=== PATIENT | female | born 1960 | race American Indian/Alaskan Native ===

== ENCOUNTER 2016-12-31 04:29 | Day surgery (SDC) | payer SELFPAY ==
[2016-12-31 05:06] LABS: Basophils % (Auto) 0.8 % (0.0-1.8); Eosinophils % (Auto) 0.8 % (0.0-4.3); Hematocrit 39.8 % (30.3-42.9); Hemoglobin 13.8 gm/dl (10.1-14.3); Mean Corpuscular HGB Conc 35 % (30-34); Mean Corpuscular Hemoglobin 33 pg (28-32); Mean Corpuscular Volume 95 fl (79-97); Platelet Count 337 K/mm3 (140-440); Red Blood Count 4.18 M/mm3 (3.65-5.03); Red Cell Distribution Width 13.4 % (13.2-15.2); White Blood Count 16.9 K/mm3 (4.5-11.0)
[2016-12-31 07:04] LABS: Bacteria,Urine 1+ /HPF (Negative); Bilirubin,Urine NEG (Negative); Blood,Urine LG (Negative); Ketones,Urine NEG (Negative); Leukocyte Esterase,Urine SM (Negative); Mucus,Urine FEW /HPF; Nitrite,Urine NEG (Negative); Urobilinogen,Urine < 2.0 mg/dL (<2.0)
[2016-12-31 07:05] LABS: RBC,Urine > 182.0 /HPF (0.0-6.0)
[2016-12-31] MEDS ORDERED: NACL 0.9% 1000 ML 1,000 ML IV ONE (07:24)
[2016-12-31] MEDS ORDERED: ZOFRAN IV ONE ×2 (07:24→18:18)
[2016-12-31] MEDS ORDERED: ROCEPHIN/NS 1 GM/50 ML 1 GM/50 ML BAG IV ONE (07:24)
[2016-12-31] MEDS ORDERED: TORADOL IV ONE (07:24)
--- NOTE | 2016-12-31 07:25 | Emergency Department Report ---
ED Female HPI - General Chief complaint: Vaginal Bleeding Stated complaint: VAG BLEEDING Time Seen by Provider: 12/31/16 07:16 Source: patient, family Mode of arrival: Ambulatory Limitations: No Limitations - History of Present Illness Initial comments: This is a 56-year-old patient here with vaginal bleeding in and stated that she had sex last night at approximately 10:30 PM. She says she had sex for the first time after 4 years. She said she went to sleep and woke up with vaginal bleeding and clots. She is also having lower abdominal pain. Patient had hysterectomy 8 years ago. Doesn't she denies any urinary burning frequency or urgency. Lower abdominal pain is crampy and ongoing.` No [id number] medication taken. Denies any fever or chills. Denies any nausea or vomiting. Denies any diarrhea. Patient denies any history of cancer. MD Complaint: vaginal bleeding, pelvic pain -: This morning Location: suprapubic Radiation: non-radiating Severity: moderate Severity scale (0 -10): 5 Quality: cramping Consistency: constant Improves with: none Worsens with: none Are you Now?: No Associated Symptoms: vaginal bleeding, abdominal pain, hematuria. denies: vaginal discharge, nausea/vomiting, fever/chills, headaches, loss of appetite, dysuria, rash, seizure, shortness of breath, syncope, weakness - Related Data Sexually active: Yes (patient had sex last night after 4 years of being abstinent) Home Medications Medication Instructions Recorded Confirmed Last Taken Metformin HCl [Glucophage] 500 mg PO QDAY 12/31/16 12/31/16 Unknown Allergies Allergy/AdvReac Type Severity Reaction Status Date / Time No Known Allergies Allergy Verified 12/31/16 04:42 ED Review of Systems ROS: Stated complaint: VAG BLEEDING Other details as noted in HPI Comment: All other systems reviewed and negative Constitutional: no symptoms reported Respiratory: no symptoms reported Cardiovascular: denies: chest pain, palpitations, edema, paroxysmal nocturnal dyspnea Gastrointestinal: abdominal pain. denies: nausea, vomiting, diarrhea, constipation, hematemesis, melena, hematochezia Genitourinary: dyspareunia (vaginal bleed and), other (abnormal vaginal bleeding and). denies: urgency, dysuria, hematuria, discharge Musculoskeletal: denies: back pain, arthralgia, myalgia Skin: denies: rash Neurological: denies: headache, weakness, abnormal gait, vertigo ED Past Medical Hx - Past Medical History Previous Medical History?: Yes Hx Diabetes: Yes - Surgical History Past Surgical History?: Yes Additional Surgical History: HYSTERECTOMY - Family History Family history: hypertension - Social History Smoking Status: Current Every Day Smoker Substance Use Type: Alcohol Other Social History: Single - Medications Home Medications: Home Medications Medication Instructions Recorded Confirmed Last Taken Type Metformin HCl [Glucophage] 500 mg PO QDAY 12/31/16 12/31/16 Unknown History ED Physical Exam - General Limitations: No Limitations General appearance: alert, in no apparent distress - Head Head exam: Present: atraumatic, normocephalic, normal inspection - Eye Eye exam: Present: PERRL, EOMI Pupils: Present: normal accommodation - ENT ENT exam: Present: normal exam, normal orophraynx, mucous membranes moist - Neck Neck exam: Present: normal inspection, full ROM. Absent: tenderness, meningismus, lymphadenopathy - Respiratory Respiratory exam: Present: normal lung sounds bilaterally. Absent: respiratory distress, wheezes, rales, rhonchi, stridor, chest wall tenderness, accessory muscle use, decreased breath sounds, prolonged expiratory - Cardiovascular Cardiovascular Exam: Present: normal rhythm, tachycardia, normal heart sounds. Absent: systolic murmur, diastolic murmur - GI/Abdominal GI/Abdominal exam: Present: soft, tenderness, guarding, normal bowel sounds. Absent: distended, rebound, rigid, organomegaly, mass, bruit, pulsatile mass, hernia - Rectal Rectal exam: Present: normal inspection - External exam: Present: bleeding. Absent: erythema, swelling, lesions, lacerations, ecchymosis Speculum exam: Present: erythema, vaginal bleeding (with clots). Absent: vaginal discharge, cervical discharge, foreign body Bi-manual exam: Absent: adnexal tenderness, adnexal mass, uterine enlargement ( absent uterus), uterine tenderness (absent uterus) - Expanded Exam Expanded Female exam: Absent: tissue present in vagina, herpetic lesions, vulvar erythema, vulvar tenderness, foreign body External exam: Present: normal Speculum exam: Present: vaginal bleeding (with clots), other (she had had hysterectomy 8 years ago). Absent: vaginal discharge - Extremities Exam Extremities exam: Present: normal inspection, full ROM, normal capillary refill , other (no clubbing cyanosis or edema. No neurovascular compromise.). Absent : tenderness, pedal edema, joint swelling, calf tenderness - Back Exam Back exam: Present: normal inspection, full ROM. Absent: tenderness, CVA tenderness (R), CVA tenderness (L), muscle spasm, paraspinal tenderness, vertebral tenderness, rash noted - Neurological Exam Neurological exam: Present: alert, oriented X3, normal gait, reflexes normal. Absent: motor sensory deficit - Psychiatric Psychiatric exam: Present: normal affect, normal mood - Skin Skin exam: Present: warm, dry, intact, normal color. Absent: rash ED Course Vital Signs 12/31/16 12/31/16 04:42 12:08 Temperature 98.2 F 98 F Pulse Rate 119 H 85 Respiratory 20 17 Rate Blood Pressure 158/84 Blood Pressure 122/69 [Right] O2 Sat by Pulse 98 99 Oximetry - Reevaluation(s) Reevaluation #1: 12/31/16 09:00 Patient here with UTI and large amount of blood. She received 1 L normal saline , CBC was elevated and she received Rocephin 1 g IV. Patient also receive Zofran 4 mg IV and Toradol 30 mg IV for nausea and abdominal pain. She voiced relief of pain. Radiologist called Dr. Saini to report that CT scan of the pelvis and abdomen without contrast showed patient with abnormality and uterus. Patient had hysterectomy which is verified by patient daughter. I discussed the radiologist the patient has a hysterectomy and he reports that maybe she has some kind of rectal abnormality. This was discussed with patient that radiologist wants further CT scan with IV contrast and by mouth rectal contrast. Hepatic panel and BMP ordered. Patient agreed to further CT scan. Reevaluation #2: 12/31/16 11:57 Patient is stable and awaiting in results of BUN creatinine and GFR via BMP. She is also overweight and CT scan of the abdomen and pelvis with IV, rectal and by mouth contrast. Abdominal exam remains unchanged. Reevaluation #3: 12/31/16 13:47 Patient didn't await in CT scan of the abdomen and pelvis status post IV, rectal and by mouth contrast. Reevaluation #4: 12/31/16 14:19 Patient with vaginal cuff these events per CT scan. I spoke with Dr. Wilson and awaiting EMPLOYEE RELATIONS ADVISOR call back. Reevaluation #5: 12/31/16 14:43 CT scan of the abdomen and pelvis with IV and by mouth/rectal contrast reveal patient with questionable dehisced vaginal cough or hematoma. Call and indirect time normal. This was relayed to patient and also I spoke with Dr. Carol Yoon of who is on-call and she wants patient to have transvaginal ultrasound. Pelvic exam and process and patient given morphine 4 mg IV. 12/31/16 17:[address] Carol Yoon who is EMPLOYEE RELATIONS ADVISOR and she will be examining patient's and will determine if patient will stay or be discharged home. This was discussed with patient and she is okay 12/31/16 17:26 12/31/16 18:08 Dr. Yoon in process of doing another pelvic exam. 12/31/16 18:53 Patient's on route to surgery per Dr. Carol Yoon. - Consultations Consultation #1: 12/31/16 14:43 Dr Yoon EMPLOYEE RELATIONS ADVISOR ED Medical Decision Making - Lab Data Result diagrams: 12/31/16 04:49 12/31/16 11:26 Lab Results 12/31/16 12/31/16 12/31/16 Range/Units 04:49 04:49 06:47 WBC 16.9 H (4.5-11.0) K/mm3 RBC 4.18 (3.65-5.03) M/mm3 Hgb 13.8 (10.1-14.3) gm/dl Hct 39.8 (30.3-42.9) % MCV 95 (79-97) fl MCH 33 H (28-32) pg MCHC 35 H (30-34) % RDW 13.4 (13.2-15.2) % Plt Count 337 (140-440) K/mm3 Lymph % (Auto) 19.6 (13.4-35.0) % [place] % (Auto) 2.9 (0.0-7.3) % Eos % (Auto) 0.8 (0.0-4.3) % Baso % (Auto) 0.8 (0.0-1.8) % Lymph # 3.3 (1.2-5.4) K/mm3 [place] # 0.5 (0.0-0.8) K/mm3 Eos # 0.1 (0.0-0.4) K/mm3 Baso # 0.1 (0.0-0.1) K/mm3 Seg Neutrophils % 75.9 H (40.0-70.0) % Seg Neutrophils # 12.9 H (1.8-7.7) K/mm3 Sodium (137-145) mmol/L Potassium (3.6-5.0) mmol/L Chloride (98-107) mmol/L Carbon Dioxide (22-30) mmol/L Anion Gap mmol/L BUN (7-17) mg/dL Creatinine (0.7-1.2) mg/dL Estimated GFR ml/min BUN/Creatinine Ratio % Glucose (65-100) mg/dL Calcium (8.4-10.2) mg/dL Total Bilirubin (0.1-1.2) mg/dL Direct Bilirubin (0-0.2) mg/dL AST (5-40) units/L ALT (7-56) units/L Alkaline Phosphatase (35-129) units/L Troponin T (0.00-0.029) ng/mL Total Protein (6.3-8.2) g/dL Albumin (3.9-5) g/dL Albumin/Globulin Ratio % Urine Color Red (Yellow) Urine Turbidity Clear (Clear) Urine pH 5.0 (5.0-7.0) Ur Specific [place] 1.023 (1.003-1.030) Urine Protein 100 mg/dl (Negative) mg/dL Urine Glucose (UA) Neg (Negative) mg/dL Urine Ketones Neg (Negative) mg/dL Urine Blood Lg (Negative) Urine Nitrite Neg (Negative) Urine Bilirubin Neg (Negative) Urine Urobilinogen < 2.0 (<2.0) mg/dL Ur Leukocyte Esterase Sm (Negative) Urine WBC (Auto) 95.0 H (0.0-6.0) /HPF Urine RBC (Auto) > 182.0 (0.0-6.0) /HPF Urine Bacteria (Auto) 1+ (Negative) /HPF Urine Mucus Few /HPF Blood Type O POSITIVE Antibody Screen Negative 12/31/16 12/31/16 Range/Units 11:26 11:26 WBC (4.5-11.0) K/mm3 RBC (3.65-5.03) M/mm3 Hgb (10.1-14.3) gm/dl Hct (30.3-42.9) % MCV (79-97) fl MCH (28-32) pg MCHC (30-34) % RDW (13.2-15.2) % Plt Count (140-440) K/mm3 Lymph % (Auto) (13.4-35.0) % [place] % (Auto) (0.0-7.3) % Eos % (Auto) (0.0-4.3) % Baso % (Auto) (0.0-1.8) % Lymph # (1.2-5.4) K/mm3 [place] # (0.0-0.8) K/mm3 Eos # (0.0-0.4) K/mm3 Baso # (0.0-0.1) K/mm3 Seg Neutrophils % (40.0-70.0) % Seg Neutrophils # (1.8-7.7) K/mm3 Sodium 142 (137-145) mmol/L Potassium 3.9 (3.6-5.0) mmol/L Chloride 106.2 (98-107) mmol/L Carbon Dioxide 25 (22-30) mmol/L Anion Gap 15 mmol/L BUN 10 (7-17) mg/dL Creatinine 0.7 (0.7-1.2) mg/dL Estimated GFR > 60 ml/min BUN/Creatinine Ratio 14.28 % Glucose 177 H (65-100) mg/dL Calcium 8.4 (8.4-10.2) mg/dL Total Bilirubin 0.40 (0.1-1.2) mg/dL Direct Bilirubin < 0.2 (0-0.2) mg/dL AST 11 (5-40) units/L ALT 7 (7-56) units/L Alkaline Phosphatase 65 (35-129) units/L Troponin T < 0.010 (0.00-0.029) ng/mL Total Protein 6.1 L (6.3-8.2) g/dL Albumin 3.6 L (3.9-5) g/dL Albumin/Globulin Ratio 1.4 % Urine Color (Yellow) Urine Turbidity (Clear) Urine pH (5.0-7.0) Ur Specific [place] (1.003-1.030) Urine Protein (Negative) mg/dL Urine Glucose (UA) (Negative) mg/dL Urine Ketones (Negative) mg/dL Urine Blood (Negative) Urine Nitrite (Negative) Urine Bilirubin (Negative) Urine Urobilinogen (<2.0) mg/dL Ur Leukocyte Esterase (Negative) Urine WBC (Auto) (0.0-6.0) /HPF Urine RBC (Auto) (0.0-6.0) /HPF Urine Bacteria (Auto) (Negative) /HPF Urine Mucus /HPF Blood Type Antibody Screen urine CX pending - Radiology Data Radiology results: report reviewed Had CT scan of abdomen and pelvis without contrast which shows that she has air/ gas in the pelvic surrounding the uterus and rectum. No focal abscesses. Gas within the endometrium is also identified. There is suggestion of possibly uterine perforation as well. Rectal perforation is thought less likely but cannot be excluded. Please correlate with patient. Patient does not have a uterus due to status post hysterectomy 8 years ago. This was communicated to Dr. Liz who report that it does look like patient have a uterus but if patient said that she had a hysterectomy than she will need to have a CT scan of the abdomen and pelvis with IV and by mouth and rectal contrast. CT scan of the abdomen and pelvis with IV and by mouth and rectal contrast revealed patient with a moderate to large amount of gas is again identified within the pelvis. The patient has apparently had a hysterectomy although there is ready form structure in the expected location of the uterus. This probably represents a hematoma which measures 4 x 5 x 3 x 5 cm in axial plane. These seem hematoma has a close association to the vaginal cuff these findings may represent vaginal cuff the head. Patient will vaginal cuff the his questionable per radiology the rectum and colon are intact. Further diagnostic tests per Dr. Carol Yoon ultrasound complete abdomen and transvaginal revealed patient with mass in the vaginal cuff probably represent hematoma or neoplasm. Clinical correlation is advised. Patient had pelvic exam done and it showed large amount of blood in vaginal vault with clots and absent cervix. No adnexal tenderness. Dr. Yoon notified of results and she will be here to examined patient. - Medical Decision Making ED course: She presents to the emergency room today with complaints of vaginal bleeding after having sex of the first time in 4 years last night. She said she is going through large amount of pads and she is having pelvic pain. Physical findings for tender abdomen. Patient had CT scan with and without contrast was done because patient had large amount of blood in her urine. CT scan without contrast was looking for kidney stones. But incidental finding for Pelvic abnormality contrast included IV, by mouth and rectal CT scan without contrast showed abnormal findings therefore CT scan with contrast showed patient with large amount of gas and pelvic area and suggests patient with questionable vaginal cuff dehiscense. Ultrasound pelvic completed and transvaginal reports patient with massive vaginal cuff properly report represents hematoma or neoplasm. Recommended EMPLOYEE RELATIONS ADVISOR. Patient right ovary and left ovary were normal. Pelvic exam done and showed patient with large amount of blood in her vaginal vault along with clots. Patient had gone through 9 pads throughout the day. Discussed this case with Dr. Wilson and he is aware of CT scan results. Dr. Carol Yoon came in to see patient and pelvic exam done with findings for bleeding and clots and patient so it abdominal pain. Patient was given Toradol 30 mg IV with Zofran 4 mg IV this morning in. She was also given additional morphine IV this afternoon. During pelvic exam by Dr. Carol oYon patient needed additional pain medications so she was given Dilaudid 1 mg IV and Zofran 4 mg IV. Patient still with abdominal tenderness on examination. CBC revealed no acute bleed and and platelets are stable but she has elevated white count which shift to the left and also mild elevation in MCH and MCHC. Troponin is stable CMP with low protein and albumin and blood sugar of 177 urinalysis positive for urinary tract infection with large amount of blood. Patient was given 1 L for IV fluid normal saline, Rocephin 1 g IV for urinary tract infection and urine culture sent. Patient remained stable throughout ED stay with stable vital signs. It was decided by Dr. Carol Yoon EMPLOYEE RELATIONS ADVISOR, the patient will be going to the OR to be cleaned out and for possible other procedure. Pt is in agreement that she notified her family. She has been nothing by mouth and type and screen already done. Critical care attestation.: If time is entered above; I have spent that time in minutes in the direct care of this critically ill patient, excluding procedure time. ED Disposition Clinical Impression: Postmenopausal vaginal bleeding, Pelvic pain, Acute cystitis with hematuria Vaginal cuff dehiscence Qualifiers: Encounter type: initial encounter Qualified Code(s): T81.31XA - Disruption of external operation (surgical) wound, not elsewhere classified, initial encounter Leukocytosis Qualifiers: Leukocytosis type: unspecified Qualified Code(s): D72.829 - Elevated white blood cell count, unspecified Disposition: DC-09 OP ADMIT IP TO THIS HOSP Is pt being admited?: Yes Does the pt Need Aspirin: No Condition: Stable
--- NOTE | 2016-12-31 08:00 | Cat Scan Report ---
CT OF THE ABDOMEN AND PELVIS WITHOUT CONTRAST HISTORY: Abdominal pain, urinary tract infection with bleeding. TECHNIQUE: Helical CT without contrast. Sagittal and coronal reformatted images. FINDINGS: No comparison. There is moderate to large gas in the pelvis surrounding the uterus and rectum. There is indistinct fat stranding in these areas but no obvious abscess. Gas is also identified within the endometrium and myometrium of the uterus. There may be uterine perforation along the right side on image 253, series 2. The bladder, ovaries and visualized bowel loops in the pelvis are unremarkable. The appendix is not confidently identified. The liver, biliary system, pancreas, spleen, kidneys, adrenal glands and aorta are unremarkable noncontrast CT. Normal heart size. Clear lung bases. Degenerative changes at L5-S1 and left hip. IMPRESSION: There is free air/gas in the pelvis surrounding the uterus and rectum. No focal abscess. Gas within the endometrium is also identified. There is suggestion of possible uterine perforation as well. Rectal perforation is thought less likely but cannot be excluded. Please correlate with the patient. Consider consultation with TOOL DISPATCHER or surgery. These findings were discussed with Dr. Jackson in the ACC/ER at 0750 hours.
[2016-12-31 12:14] LABS: Alanine Aminotransferase 7 units/L (7-56); Albumin 3.6 g/dL (3.9-5); Albumin/Globulin Ratio 1.4 %; Alkaline Phosphatase 65 units/L (35-129); Anion Gap 15 mmol/L; BUN/Creatinine Ratio 14.28; Bilirubin,Direct < 0.2 mg/dL (0-0.2); Blood Urea Nitrogen 10 mg/dL (7-17); Calcium 8.4 mg/dL (8.4-10.2); Carbon Dioxide 25 mmol/L (22-30); Chloride 106.2 mmol/L (98-107); Glucose 177 mg/dL (65-100); Potassium 3.9 mmol/L (3.6-5.0); Sodium 142 mmol/L (137-145); Total Protein 6.1 g/dL (6.3-8.2)
--- NOTE | 2016-12-31 14:04 | Cat Scan Report ---
CT SCAN OF THE ABDOMEN AND PELVIS WITH CONTRAST: HISTORY: Pelvic pain. TECHNIQUE: Helical CT in 1.25mm intervals following IV contrast. Sagittal and coronal reconstructions. FINDINGS: The noncontrast CT abdomen pelvis performed earlier today was reviewed. Rectal contrast was administered for this exam. There is no evidence for extravasation of contrast from the colon or rectum. A moderate to large amount of gas is again identified within the pelvis. The patient has apparently had a hysterectomy although there is a reniform structure in the expected location of the uterus. This probably represents a hematoma which measures 4.5 x 3.5 cm in axial plane. This assumed hematoma has a close association to the vaginal cuff. These findings may represent vaginal cuff dehiscence. Consider consultation with SHANK TURNER. The remainder of the examination is unchanged since earlier today at 0732 hours. IMPRESSION: Vaginal cuff dehiscence? See above. The rectum and colon are intact.
[2016-12-31] MEDS ORDERED: MORPHINE IV ONE (14:42)
--- NOTE | 2016-12-31 16:27 | Ultrasound Report ---
Pelvic and transvaginal sonography: History: Vaginal bleeding. Findings: Patient status post hysterectomy. There is a mass identified in the region of the vaginal cuff with heterogeneous echo pattern measuring 3.7 x 3.7 x 4.2 cm. Right ovary 2.7 x 1.6 x 2.3 cm. Left ovary 1.8 x 2.7 x 1.2 cm. No mass of the ovaries. Impression: Mass in the vaginal cuff probably represents a hematoma or a neoplasm. Clinical correlation advised. If necessary further evaluation recommended.
[2016-12-31] MEDS ORDERED: SILVER NITRATE TP ONE ×4 (18:07→19:22)
[2016-12-31] MEDS ORDERED: DILAUDID IV ONE (18:18)
[2016-12-31 18:22] LABS: Basophils % (Auto) 0.4 % (0.0-1.8); Eosinophils % (Auto) 1.1 % (0.0-4.3); Hematocrit 33.6 % (30.3-42.9); Hemoglobin 11.5 gm/dl (10.1-14.3); Mean Corpuscular HGB Conc 34 % (30-34); Mean Corpuscular Hemoglobin 33 pg (28-32); Mean Corpuscular Volume 97 fl (79-97); Platelet Count 298 K/mm3 (140-440); Red Blood Count 3.48 M/mm3 (3.65-5.03); Red Cell Distribution Width 13.3 % (13.2-15.2); White Blood Count 13.2 K/mm3 (4.5-11.0)
--- NOTE | 2016-12-31 18:50 | History and Physical Report ---
History of Present Illness Date of examination: 12/31/16 Date of admission: 12/31/16 Chief complaint: abdominal pain and vaginal bleeding History of present illness: 56 yo LMP 10 years came in for abdominal pain and vaginal bleeding after having sex for the first time in 4 years. She was seen in Er at [address] scan revealed a questionable area appearing in area of uterus as a uterus . US shows a hematoma vs a neoplasm. She denies any n,v,f, chills. 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, cancer Family/Genetic History: diabetes, heart disease, hypertension Social history: no significant social history, single Medications and Allergies Allergies Allergy/AdvReac Type Severity Reaction Status Date / Time No Known Allergies Allergy Verified 12/31/16 04:42 Review of Systems All systems: negative Gastrointestinal: abdominal pain Genitourinary: vaginal bleeding - Vital Signs Vital signs: Vital Signs Temp Pulse Resp BP Pulse Ox 98.2 F 119 H 20 158/84 98 12/31/16 04:42 12/31/16 04:42 12/31/16 04:42 12/31/16 04:42 12/31/16 04:42 Temp Pulse Resp BP Pulse Ox 98 F 85 17 122/69 99 12/31/16 12:08 12/31/16 12:08 12/31/16 12:08 12/31/16 12:08 12/31/16 12:08 - Physical Exam Breasts: Positive: deferred Cardiovascular: Regular rate, Normal S1 Lungs: Positive: Clear to auscultation, Normal air movement Abdomen: Positive: normal appearance, soft, normal bowel sounds. Negative: distention, tenderness, guarding Genitourinary (Female): Positive: normal external genitalia, normal perenium. Negative: perineal/vulvar lesions Vulva: both: normal Vagina: Positive: other (large clot in vagina ) Uterus: Positive: absent Anus/Rectum: Positive: normal perianal skin Extremities: Positive: normal Deep Tendon Reflex Grade: Normal +2 Results Result Diagrams: 12/31/16 17:29 12/31/16 11:26 Abnormal lab results 12/31/16 12/31/16 12/31/16 Range/Units 04:49 06:47 11:26 WBC 16.9 H (4.5-11.0) K/mm3 RBC (3.65-5.03) M/mm3 MCH 33 H (28-32) pg MCHC 35 H (30-34) % Seg Neutrophils % 75.9 H (40.0-70.0) % Seg Neutrophils # 12.9 H (1.8-7.7) K/mm3 Glucose 177 H (65-100) mg/dL Total Protein 6.1 L (6.3-8.2) g/dL Albumin 3.6 L (3.9-5) g/dL Urine WBC (Auto) 95.0 H (0.0-6.0) /HPF 12/31/ Range/Units 17:29 WBC 13.2 H (4.5-11.0) K/mm3 RBC 3.48 L (3.65-5.03) M/mm3 MCH 33 H (28-32) pg MCHC (30-34) % Seg Neutrophils % (40.0-70.0) % Seg Neutrophils # 9.1 H (1.8-7.7) K/mm3 Glucose (65-100) mg/dL Total Protein (6.3-8.2) g/dL Albumin (3.9-5) g/dL Urine WBC (Auto) (0.0-6.0) /HPF All other labs normal. Assessment and Plan vaginal bleeding s/p hysterectomy ddx hematoma vs evisceration vs mass ( neoplasm) consented for Exam under anesthesia and any other indicated procedure which include bx, suturing vs L/S will proceed to OR
[2016-12-31] MEDS ORDERED: DIPRIVAN 10 MG/ML IV ONE (19:44)
[2016-12-31] MEDS ORDERED: SUBLIMAZE ONE (19:44)
[2016-12-31] MEDS ORDERED: XYLOCAINE MPF 2% ONE (19:47)
[2016-12-31] MEDS ORDERED: VERSED ONE (19:54)
[2016-12-31] MEDS ORDERED: DILAUDID IV PRN (20:05)
[2016-12-31] MEDS ORDERED: ZOFRAN IV PRN (20:05)
--- NOTE | 2016-12-31 20:05 | Anesthesia Consultation ---
Anesthesia Consult and Med Hx Date of service: 12/31/16 - Airway Anesthetic Teeth Evaluation: Dentures, Partials ROM Head & Neck: Adequate Mental/Hyoid Distance: Adequate Mallampati Class: Class II Intubation Access Assessment: Probably Good - Pulmonary Exam CTA: Yes - Cardiac Exam Cardiac Exam: RRR - Pre-Operative Health Status ASA Pre-Surgery Classification: ASA3, Emergency Proposed Anesthetic Plan: General - Pulmonary Hx Smoking: Yes (1/2 ppd) - Cardiovascular System Hx Hypertension: Yes (non compliant with meds) - Endocrine Hx Non-Insulin Dependent Diabetes: Yes
--- NOTE | 2016-12-31 20:05 | Anesthesia Day of Surgery ---
Anesthesia Day of Surgery - Day of Surgery Patient Examined: Yes Patient H&P Reviewed: Yes Patient is NPO: Yes
[2016-12-31] MEDS ORDERED: NACL 0.9% IR ONE (20:23)
[2016-12-31] MEDS ORDERED: ZOFRAN ONE (20:27)
[2016-12-31] MEDS ORDERED: NACL 0.9% 100 ML ONE (20:27)
[2016-12-31] MEDS ORDERED: DECADRON ONE (20:27)
[2016-12-31] MEDS ORDERED: NEO SYNEPHRINE ONE (20:27)
[2016-12-31] MEDS ORDERED: ZEMURON IV ONE (20:27)
[2016-12-31] MEDS ORDERED: PROAIR IH ONE (20:30)
[2016-12-31] MEDS ORDERED: ROBINUL ONE ×2 (20:47)
[2016-12-31] MEDS ORDERED: NEOSTIGMINE ONE (20:48)
[2016-12-31] MEDS ORDERED: NACL 0.9% 1000 ML 1,000 ML ONE (20:49)
--- NOTE | 2016-12-31 21:11 | Post Anesthesia Evaluation ---
- Post Anesthesia Evaluation Patient Participated: Yes Airway Patent: Yes Stable Respiratory Function: Yes Temp > 96.8F: Yes Pain Manageable: Yes Adequeate Hydration: Yes Anesthesia Complications: No Block Receding Appropriately: Not Applicable
--- NOTE | 2016-12-31 21:12 | Operative Report ---
Operative Report Operative Report: Date: 12/31/16 Preop: vaginal bleeding and abdominal pain Post op: vaginal wall dehiscense Procedure: EUA, repair of vaginal wall dehiscence Surgeon: Dr. Car Chapman Certified Cytotechnologist: Dr. Car Quinn Anesthesia: General IVF : see anesthesia record UOP : straight cath clear urine 100 cc Procedure: Patient was taken to OR after consents signed and reviewed. All questions answered. Patient was taken to Or and after general anesthesia placed in dorsal lithotomy position. Patient was straight cath and cleansed thoroughly perineum and vagina. A pelvic exam revealed a large opening. A weighted speculum placed in the vagina and the corners of the vagina was closed with one stich anteriorly and posteriorly with 2-0 vicryl. A SR6 was used to begin at one corner and running locked stitch used for adequate closure. All instruments were removed and sponge count correct x 2. Patient tolerated procedure well.
[2016-12-31 23:23] VITALS: BP 116/66
== END 2016-12-31 23:10 | disposition home or self-care (01) ==
LOC: ED 04:29 → OR 21:39
PROVIDERS: ATTEND Anesthesiology
DX: T81.31XA Disruption of external operation (surgical) wound, not elsewhere classified, initial encounter (principal); Y83.8 Other surgical procedures as the cause of abnormal reaction of the patient, or of later complication, without mention of misadventure at the time of the procedure; E11.9 Type 2 diabetes mellitus without complications; I10 Essential (primary) hypertension; F17.210 Nicotine dependence, cigarettes, uncomplicated; Z72.89 Other problems related to lifestyle; Z79.84 Long term (current) use of oral hypoglycemic drugs
CPT/HCPCS: 13160; 36415; 74176; 74177; 76830; 76856; 80048; 80074; 81001; 82962; 84484; 85025; 86850; 86900; 86901; 87086; J0696; J1100; J1170; J1885; J2250; J2270; J2370; J2405; J2704; J2710; J3010; J7030; Q9967

== ENCOUNTER 2018-10-04 07:12 | Emergency (ER) | payer OTHER ==
[2018-10-04 08:12] VITALS: BP 128/87
--- NOTE | 2018-10-04 10:20 | Emergency Department Report ---
- General Chief complaint: Skin/Abscess/Foreign Body Stated complaint: LUMP ON BUTTOCKS/BACK PAIN Time Seen by Provider: 10/04/18 09:00 Source: patient Mode of arrival: Ambulatory Limitations: No Limitations - History of Present Illness Initial comments: Patient is a 58-year-old female who presents to the emergency room with complaints of an abscess to her buttock that began a week ago. the patietn states it is causing her pain and difficulty sitting down. She states this morning it opened up and was draining a mixture of pus and blood. She states she has been trying to use warm compresses without much relief. she has never had this before. She states she has a history of diabetes which she states she controls with her diet. no daily meds or allergies to meds. - Related Data Home Medications Medication Instructions Recorded Confirmed Last Taken Metformin HCl [Glucophage] 500 mg PO QDAY 12/31/16 12/31/16 Unknown Previous Rx's Medication Instructions Recorded Last Taken Type Estrogens, Conjugated [Premarin 1 applicator VG QHS #1 tube 12/31/16 Unknown Rx 0.625 mg/gram VAG CREAM] cephALEXin [Keflex] 500 mg PO Q12HR #14 cap 12/31/16 Unknown Rx oxyCODONE /ACETAMINOPHEN [Percocet 1 tab PO Q6HR PRN #30 tablet 12/31/16 Unknown Rx 5/325] Sulfamethoxazole/Trimethoprim 1 each PO BID 10 Days #20 tablet 10/04/18 Unknown Rx [Bactrim DS TAB] metFORMIN [Glucophage] 500 mg PO QDAY #30 tab 10/04/18 Unknown Rx Allergies Allergy/AdvReac Type Severity Reaction Status Date / Time No Known Allergies Allergy Verified 10/04/18 08:07 Abscess Boil HPI - HPI Chief Complaint: Skin/Abscess/Foreign Body Stated Complaint: LUMP ON BUTTOCKS/BACK PAIN Time Seen by Provider: 10/04/18 09:00 Home Medications: Home Medications Medication Instructions Recorded Confirmed Last Taken Metformin HCl [Glucophage] 500 mg PO QDAY 12/31/16 12/31/16 Unknown Previous Rx's Medication Instructions Recorded Last Taken Type Estrogens, Conjugated [Premarin 1 applicator VG QHS #1 tube 12/31/16 Unknown Rx 0.625 mg/gram VAG CREAM] cephALEXin [Keflex] 500 mg PO Q12HR #14 cap 09/29/17 Unknown Rx oxyCODONE /ACETAMINOPHEN [Percocet 1 tab PO Q6HR PRN #30 tablet 12/31/16 Unknown Rx 5/325] Sulfamethoxazole/Trimethoprim 1 each PO BID 10 Days #20 tablet 10/04/18 Unknown Rx [Bactrim DS TAB] metFORMIN [Glucophage] 500 mg PO QDAY #30 tab 10/04/18 Unknown Rx Allergies/Adverse Reactions: Allergies Allergy/AdvReac Type Severity Reaction Status Date / Time No Known Allergies Allergy Verified 10/04/18 08:07 ED Review of Systems ROS: Stated complaint: LUMP ON BUTTOCKS/BACK PAIN Other details as noted in HPI Comment: All other systems reviewed and negative ED Past Medical Hx - Past Medical History Hx Hypertension: Yes (non compliant with meds) Hx Diabetes: Yes - Surgical History Additional Surgical History: HYSTERECTOMY - Social History Smoking Status: Current Every Day Smoker - Medications Home Medications: Home Medications Medication Instructions Recorded Confirmed Last Taken Type Estrogens, Conjugated [Premarin 1 applicator VG QHS #1 tube 12/31/16 Unknown Rx 0.625 mg/gram VAG CREAM] Metformin HCl [Glucophage] 500 mg PO QDAY 12/31/16 12/31/16 Unknown History cephALEXin [Keflex] 500 mg PO Q12HR #14 cap 12/31/16 Unknown Rx oxyCODONE /ACETAMINOPHEN [Percocet 1 tab PO Q6HR PRN #30 tablet 12/31/16 Unknown Rx 5/325] Sulfamethoxazole/Trimethoprim 1 each PO BID 10 Days #20 tablet 10/04/18 Unknown Rx [Bactrim DS TAB] metFORMIN [Glucophage] 500 mg PO QDAY #30 tab 10/04/18 Unknown Rx ED Physical Exam - General Limitations: No Limitations General appearance: alert, in no apparent distress - Head Head exam: Present: atraumatic, normocephalic - Eye Eye exam: Present: normal appearance - ENT ENT exam: Present: mucous membranes moist - Respiratory Respiratory exam: Present: normal lung sounds bilaterally. Absent: respiratory distress, wheezes, rales, rhonchi, stridor, chest wall tenderness, accessory muscle use, decreased breath sounds, prolonged expiratory - Cardiovascular Cardiovascular Exam: Present: regular rate, normal rhythm, normal heart sounds. Absent: systolic murmur, diastolic murmur, rubs, gallop - GI/Abdominal GI/Abdominal exam: Present: soft, normal bowel sounds. Absent: distended, tenderness, guarding, rebound, rigid - Rectal Rectal exam: Present: other (6 cm area of induration and erythema with a 3 cm area of central flucutance on the right buttock, financial systems manager: FABY Mcclellan) - Neurological Exam Neurological exam: Present: alert, oriented X3 - Psychiatric Psychiatric exam: Present: normal affect, normal mood - Skin Skin exam: Present: warm, dry, intact ED Course Vital Signs 10/04/18 10/04/18 10/04/18 08:08 11:04 11:30 Temperature 98.5 F Pulse Rate 100 H 90 Respiratory 20 18 18 Rate Blood Pressure 128/87 O2 Sat by Pulse 100 99 Oximetry 10/04/18 11:32 Temperature Pulse Rate Respiratory 18 Rate Blood Pressure O2 Sat by Pulse Oximetry - I & D Right Buttocks Type of Procedure: Simple Site: right buttock Blade Size: 11 I & D Procedure: betadine prep, sterile drapes applied, sterile dressing applied Progress: financial systems manager: FABY Mcclellan area cleaned with betadine, sterile drapes applied, 4 cc of 1% lidocaine inject ed, 2 cm incision made with an 11 blade, copious amount of foul smelling white purulent drainage expressed, probed with blunt hemostat which expressed further purulent drainage, irrigated with 20 cc of saline, packed with iodoform gauze, pt tolerated well, no complications, bleeding controlled ED Medical Decision Making - Medical Decision Making Patient is a 58-year-old female who presents to the emergency room with complaints of an abscess to her buttock that began a week ago. the patietn states it is causing her pain and difficulty sitting down. She states this morning it opened up and was draining a mixture of pus and blood. She states she has been trying to use warm compresses without much relief. she has never had this before. She states she has a history of diabetes which she states she controls with her diet. no daily meds or allergies to meds. on exam: 6 cm area of induration and erythema with a 3 cm area of central flucutance on the right buttock, financial systems manager: FABY Mcclellan. I&D performed per procedure note, packed with iodoform gauze. pt blood glucose is 239, pt started back on metformin. pt also given prescription for bactrim. advised pt to please keep area clean and dry. No hot tub, bathtub, pool. May wash around the area with soap and water and immediately dry. packing needs to be removed in exactly 2 days. due to large area of abscess and history of DM referred pt to general surgery for an evaluation. advised that it is very important that you follow-up with a general surgeon in the next 2-3 days. please take antibiotics to completion and take them as prescribed. Returned to the emergency room immediately for any new or worsening symptoms or if symptoms not improving. discussed to follow up with a PCP in the next 2-3 days due to elevated blood glucose and being started back on metformin. Critical care attestation.: If time is entered above; I have spent that time in minutes in the direct care of this critically ill patient, excluding procedure time. ED Disposition Clinical Impression: Abscess, Encounter for incision and drainage procedure, Elevated random blood glucose level Disposition: TO HOME OR SELFCARE Is pt being admited?: No Does the pt Need Aspirin: No Condition: Stable Instructions: Abscess (ED), Incision and Drainage (ED) Additional Instructions: Please keep area clean and dry. No hot tub, bathtub, pool. May wash around the area with soap and water and immediately dry. packing needs to be removed in exactly 2 days. It is very important that you follow-up with a general surgeon in the next 2-3 days. please take antibiotics to completion and take them as prescribed. Returned to the emergency room immediately for any new or worsening symptoms or if symptoms not improving. Prescriptions: Sulfamethoxazole/Trimethoprim [Bactrim DS TAB] 1 each PO BID 10 Days #20 tablet metFORMIN [Glucophage] 500 mg PO QDAY #30 tab Referrals: DURGA LUGO MD [Primary Care Provider] - 2-3 Days JACQUE HELM MD [Staff Physician] - 2-3 Days Forms: Work/School Release Form(ED) Time of Disposition: 10:51 Print Language: UZBEK
[2018-10-04] MEDS ORDERED: XYLOCAINE 1% MPF 5 mL INFILTRATI ONE (10:24)
[2018-10-04] MEDS ORDERED: XYLOCAINE 1% MPF 5 mL ONE (10:26)
[2018-10-04] MEDS ORDERED: TYLENOL #3 PO ONE (10:46)
== END 2018-10-04 11:30 | disposition home or self-care (01) ==
LOC: ED 07:12
DX: L02.31 Cutaneous abscess of buttock (principal); E11.9 Type 2 diabetes mellitus without complications; I10 Essential (primary) hypertension; Z90.710 Acquired absence of both cervix and uterus; Z79.899 Other long term (current) drug therapy
CPT/HCPCS: 82962

== ENCOUNTER 2018-10-06 11:54 | Emergency (ER) | payer SELFPAY ==
[2018-10-06] MEDS ORDERED: BOOSTRIX IM ONE (13:04)
--- NOTE | 2018-10-06 13:06 | Emergency Department Report ---
ED Recheck HPI - General Chief Complaint: Skin/Abscess/Foreign Body Stated Complaint: FOLLOW UP Time Seen by Provider: 10/06/18 12:16 Source: patient Mode of arrival: Ambulatory Limitations: No Limitations - History of Present Illness Initial Comments: Patient is a 58-year-old who comes to the ER today in follow-up for abscess I&D that she had. She is here for packing removal. The abscesses on her right buttocks. She states that she has not had fever or chills. She is taking her medications as prescribed. - Related Data Home Medications Medication Instructions Recorded Confirmed Last Taken Metformin HCl [Glucophage] 500 mg PO QDAY 12/31/16 12/31/16 Unknown Previous Rx's Medication Instructions Recorded Last Taken Type Estrogens, Conjugated [Premarin 1 applicator VG QHS #1 tube 12/31/16 Unknown Rx 0.625 mg/gram VAG CREAM] cephALEXin [Keflex] 500 mg PO Q12HR #14 cap 12/31/16 Unknown Rx oxyCODONE /ACETAMINOPHEN [Percocet 1 tab PO Q6HR PRN #30 tablet 12/31/16 Unknown Rx 5/325] Sulfamethoxazole/Trimethoprim 1 each PO BID 10 Days #20 tablet 10/04/18 Unknown Rx [Bactrim DS TAB] metFORMIN [Glucophage] 500 mg PO QDAY #30 tab 10/04/18 Unknown Rx Allergies Allergy/AdvReac Type Severity Reaction Status Date / Time No Known Allergies Allergy Verified 10/06/18 11:55 ED Review of Systems ROS: Stated complaint: FOLLOW UP Other details as noted in HPI Comment: All other systems reviewed and negative ED Past Medical Hx - Past Medical History Hx Hypertension: Yes (non compliant with meds) Hx Diabetes: Yes - Surgical History Additional Surgical History: HYSTERECTOMY - Social History Smoking Status: Current Every Day Smoker Substance Use Type: None - Medications Home Medications: Home Medications Medication Instructions Recorded Confirmed Last Taken Type Estrogens, Conjugated [Premarin 1 applicator VG QHS #1 tube 12/31/16 Unknown Rx 0.625 mg/gram VAG CREAM] Metformin HCl [Glucophage] 500 mg PO QDAY 12/31/16 12/31/16 Unknown History cephALEXin [Keflex] 500 mg PO Q12HR #14 cap 12/31/16 Unknown Rx oxyCODONE /ACETAMINOPHEN [Percocet 1 tab PO Q6HR PRN #30 tablet 12/31/16 Unknow n Rx 5/325] Sulfamethoxazole/Trimethoprim 1 each PO BID 10 Days #20 tablet 10/04/18 Unknown Rx [Bactrim DS TAB] metFORMIN [Glucophage] 500 mg PO QDAY #30 tab 10/04/18 Unknown Rx ED Physical Exam - General Limitations: No Limitations General appearance: alert - Head Head exam: Present: normocephalic - Eye Eye exam: Present: normal appearance - ENT ENT exam: Present: mucous membranes moist - Neck Neck exam: Present: normal inspection - Respiratory Respiratory exam: Present: normal lung sounds bilaterally - Cardiovascular Cardiovascular Exam: Present: regular rate (90 ON EXAM) - GI/Abdominal GI/Abdominal exam: Present: soft - Rectal Rectal exam: Present: deferred - Extremities Exam Extremities exam: Present: normal inspection - Neurological Exam Neurological exam: Present: alert, oriented X3, CN II-XII intact - Skin Skin exam: Present: warm, intact - Other Other exam information: healing abscess of right buttocks packing removed without difficulty ED Course Vital Signs 10/06/18 12:34 Temperature 98.2 F Pulse Rate 109 H Respiratory 18 Rate Blood Pressure 140/79 O2 Sat by Pulse 99 Oximetry ED Recheck MDM - Core Measures Measure Exclusions: not indicated - Differential Diagnosis Wound Recheck - Medical Decision Making PACKING REMOVED TDAP GIVEN TAKING MEDS DC HOME WITH DC PLAN OF CARE VSS AFEBRILE Vital Signs 10/06/18 12:34 Temperature 98.2 F Pulse Rate 109 H Respiratory 18 Rate Blood Pressure 140/79 O2 Sat by Pulse 99 Oximetry Critical care attestation.: If time is entered above; I have spent that time in minutes in the direct care of this critically ill patient, excluding procedure time. ED Disposition Clinical Impression: Abscess, Abscess packing removal Disposition: DC-01 TO HOME OR SELFCARE Is pt being admited?: No Does the pt Need Aspirin: No Condition: Stable Instructions: Abscess (ED) Additional Instructions: SOAK IN TUB OF EPSOM SALTS FOR COMFORT CONTINUE HOME MEDS MOTRIN OR TYLENOL FOR PAIN ACTIVITY TOLERATED DIET TOLERATED FOLLOW UP WITH PCP NEXT WEEK REFERRAL BELOW Referrals: SANTHOSH ROSALES MD [Staff Physician] - 3-5 Days Time of Disposition: 13:04
[2018-10-06 13:52] VITALS: BP 136/80
== END 2018-10-06 13:51 | disposition home or self-care (01) ==
LOC: ED 11:54
DX: L02.31 Cutaneous abscess of buttock (principal); I10 Essential (primary) hypertension; F17.200 Nicotine dependence, unspecified, uncomplicated
CPT/HCPCS: 90471; 90715; 99282

== ENCOUNTER 2019-08-26 08:42 | Emergency (ER) | payer SELFPAY ==
[2019-08-26 09:20] LABS: Basophils # (Auto) 0.1 K/mm3 (0.0-0.1); Eosinophils # (Auto) 0.1 K/mm3 (0.0-0.4); Eosinophils % (Auto) 1.2 % (0.0-4.3); Hematocrit 46.5 % (30.3-42.9); Hemoglobin 16.1 gm/dl (10.1-14.3); Lymphocytes # (Auto) 3.5 K/mm3 (1.2-5.4); Lymphocytes % (Auto) 42.5 % (13.4-35.0); Mean Corpuscular HGB Conc 35 % (30-34); Mean Corpuscular Volume 95 fl (79-97); Monocytes # (Auto) 0.4 K/mm3 (0.0-0.8); Monocytes % (Auto) 5.3 % (0.0-7.3); Platelet Count 343 K/mm3 (140-440); Red Blood Count 4.88 M/mm3 (3.65-5.03); Red Cell Distribution Width 12.9 % (13.2-15.2)
[2019-08-26 09:37] LABS: Alanine Aminotransferase 13 units/L (7-56); Albumin 4.3 g/dL (3.9-5); BUN/Creatinine Ratio 12; Blood Urea Nitrogen 12 mg/dL (7-17); Calcium 9.5 mg/dL (8.4-10.2); Hemolysis Index 4
[2019-08-26 09:54] LABS: Bacteria,Urine 1+ /HPF (Negative); Bilirubin,Urine NEG (Negative); Blood,Urine MOD (Negative); Color,Urine Yellow (Yellow); Mucus,Urine FEW /HPF; Protein,Urine <15 mg/dL mg/dL (Negative); Urobilinogen,Urine < 2.0 mg/dL (<2.0)
[2019-08-26] MEDS ORDERED: SODIUM CHLORIDE 0.9% 1000 ML 1,000 ML IV ONE (10:25)
[2019-08-26] MEDS ORDERED: ONDANSETRON 4 MG/2 ML INJ IV ONE (10:25)
[2019-08-26] MEDS ORDERED: INSULIN REGULAR, HUMAN 100 UNITS/1 ML IV ONE (10:25)
--- NOTE | 2019-08-26 10:34 | Emergency Department Report ---
HPI - General Chief Complaint: Nausea/Vomiting/Diarrhea Time Seen by Provider: 08/26/19 10:15 - HPI HPI: 59-year-old -[place] female presents to the emergency department from home with complaint of a one-week history of a sore throat, nausea without vomiting and feeling dehydrated. Patient says that she has a history of diabetes but has not been on medication for the past 3 years as she says it has been appropriately controlled with diet and that she checks her blood sugar intermittently. She just recently moved here and therefore does not have a local primary care physician. She also has a history of hypertension but is not on medication for this as well. She is a tobacco smoker but denies any illicit drug use. She denies any fever, chest pain, shortness of breath. No sick contacts at home or any known exposure to anyone with Covid 19. ED Past Medical Hx - Past Medical History Previous Medical History?: Yes Hx Hypertension: Yes (non compliant with meds) Hx Diabetes: Yes - Surgical History Past Surgical History?: Yes Additional Surgical History: HYSTERECTOMY - Social History Smoking Status: Current Every Day Smoker Substance Use Type: None - Medications Home Medications: Home Medications Medication Instructions Recorded Confirmed Last Taken Type Estrogens, Conjugated [Premarin 1 applicator VG QHS #1 tube 12/31/16 Unknown Rx 0.625 mg/gram VAG CREAM] Metformin HCl [Glucophage] 500 mg PO QDAY 12/31/16 12/31/16 Unknown History cephALEXin [Keflex] 500 mg PO Q12HR #14 cap 12/31/16 Unknown Rx oxyCODONE /ACETAMINOPHEN [Percocet 1 tab PO Q6HR PRN #30 tablet 12/31/16 Unknown Rx 5/325] Sulfamethoxazole/Trimethoprim 1 each PO BID 10 Days #20 tablet 10/04/18 Unknown Rx [Bactrim DS TAB] Ondansetron [Zofran Odt] 4 mg PO Q8HR PRN #15 tab.rapdis 08/26/19 Unknown Rx metFORMIN [Glucophage] 500 mg PO QDAY #30 tab 08/26/19 Unknown Rx ED Review of Systems ROS: Stated complaint: SORE THROAT/NAUSEA Other details as noted in HPI Constitutional: denies: chills, fever Eyes: denies: eye pain, vision change ENT: throat pain. denies: ear pain Respiratory: denies: shortness of breath, wheezing Cardiovascular: denies: chest pain, palpitations Gastrointestinal: nausea. denies: abdominal pain, vomiting Genitourinary: denies: dysuria, discharge Musculoskeletal: denies: back pain, arthralgia Skin: denies: rash, lesions Neurological: denies: headache, weakness Physical Exam - Physical Exam Vital Signs: Vital Signs 08/26/19 08:52 Temperature 97.9 F Pulse Rate 113 H Respiratory 20 Rate Blood Pressure 124/98 O2 Sat by Pulse 100 Oximetry Physical Exam: GENERAL: The patient is well-developed well-nourished. HENT: Normocephalic. Atraumatic. Patient has moist mucous membranes. Posterior pharynx shows some mild erythema but no exudates or significant tonsillar hypertrophy. No drooling or trismus. EYES: Extraocular motions are intact. NECK: Supple. Trachea is midline. CHEST/LUNGS: Clear to auscultation. There is no respiratory distress noted. HEART/CARDIOVASCULAR: Regular. There is no tachycardia. ABDOMEN: Abdomen is soft, nontender. Patient has normal bowel sounds. SKIN: Skin is warm and dry. NEURO: The patient is awake, alert, and oriented. The patient is cooperative. The patient has no focal neurologic deficits. Normal speech. MUSCULOSKELETAL: There is no tenderness or deformity. There is no evidence of acute injury. ED Course Vital Signs 08/26/19 08:52 Temperature 97.9 F Pulse Rate 113 H Respiratory 20 Rate Blood Pressure 124/98 O2 Sat by Pulse 100 Oximetry ED Medical Decision Making - Lab Data Result diagrams: 08/26/19 09:04 08/26/19 09:04 - Medical Decision Making This patient presents to the emergency department with a sore throat, some nausea without vomiting and some dehydration. She has been off of her diabetes medications for the past few years she says it has been controlled with her diet. She presents with a serum blood sugar of about 420. There is no elevation in her anion gap and she does not appear to be in diabetic ketoacidosis. Patient was given some IV fluid resuscitation, nausea medication and a dose of IV insulin. Her Accu-Chek was down to about 210. The patient was able to pass an oral challenge without any return of her nausea or any vomiting. She appears clinically improved and safe for discharge home at this time. She will be restarted on her metformin and has been given multiple referrals for primary care. She will return to the ER with any worsening of her symptoms or any acute distress. Critical Care Time: No Critical care attestation.: If time is entered above; I have spent that time in minutes in the direct care of this critically ill patient, excluding procedure time. ED Disposition Clinical Impression: Hyperglycemia, History of diabetes mellitus, Nausea Pharyngitis Qualifiers: Pharyngitis/tonsillitis etiology: unspecified etiology Qualified Code(s): J02.9 - Acute pharyngitis, unspecified Disposition: TO HOME OR SELFCARE Is pt being admited?: No Condition: Stable Instructions: Pharyngitis (ED), Diabetic Hyperglycemia (ED) Additional Instructions: Please follow-up with a primary care physician in the next few days regarding your history of diabetes and the elevated blood sugar you were found to have today. I am restarting you on metformin. Do not skip meals, but please try and stay away from foods that are high in sugar, carbohydrates and starches. Keep a blood sugar log. Return to the emergency department with any worsening of your symptoms or any acute distress. Prescriptions: metFORMIN [Glucophage] 500 mg PO QDAY #30 tab Ondansetron [Zofran Odt] 4 mg PO Q8HR PRN #15 tab.rapdis PRN Reason: Nausea Referrals: BELINDA SNYDER MD [Primary Care Provider] - 3-5 Days BLANCO SCHWARTZ MD [Staff Physician] - 3-5 Days CUCA GARDINER MD [Staff Physician] - 3-5 Days [facility] [Provider Group] - 3-5 Days Time of Disposition: 13:09
[2019-08-26 13:20] VITALS: BP 130/80
== END 2019-08-26 13:21 | disposition home or self-care (01) ==
LOC: ED 08:42
DX: J02.9 Acute pharyngitis, unspecified (principal); E11.65 Type 2 diabetes mellitus with hyperglycemia; I10 Essential (primary) hypertension; F17.200 Nicotine dependence, unspecified, uncomplicated; F12.10 Cannabis abuse, uncomplicated; Z98.890 Other specified postprocedural states; Z79.899 Other long term (current) drug therapy
CPT/HCPCS: 36415; 80053; 81001; 82962; 83690; 85025; 87116; 87430; 96361; 96374; 96375; 99284; J2405; J7030; J1815

== ENCOUNTER 2020-01-10 05:37 | Emergency (ER) | payer SELFPAY ==
[2020-01-10] MEDS ORDERED: ASPIRIN 325 MG TAB PO ONE (05:43)
[2020-01-10 06:20] LABS: Basophils # (Auto) 0.1 K/mm3 (0.0-0.1); Basophils % (Auto) 1.2 % (0.0-1.8); Eosinophils # (Auto) 0.1 K/mm3 (0.0-0.4); Eosinophils % (Auto) 1.1 % (0.0-4.3); Hematocrit 41.5 % (30.3-42.9); Hemoglobin 14.3 gm/dl (10.1-14.3); Lymphocytes # (Auto) 3.5 K/mm3 (1.2-5.4); Lymphocytes % (Auto) 37.3 % (13.4-35.0); Mean Corpuscular HGB Conc 35 % (30-34); Mean Corpuscular Volume 97 fl (79-97); Monocytes # (Auto) 0.4 K/mm3 (0.0-0.8); Monocytes % (Auto) 4.6 % (0.0-7.3); Platelet Count 332 K/mm3 (140-440); Red Blood Count 4.28 M/mm3 (3.65-5.03); Red Cell Distribution Width 13.1 % (13.2-15.2)
--- NOTE | 2020-01-10 06:25 | XRay Report ---
CHEST PA AND LATERAL VIEWS INDICATION: Chest Pain. COMPARISON: None FINDINGS: Support devices: None Heart: Normal Lungs/Pleura: No acute pulmonary or pleural findings. IMPRESSION: 1. No significant abnormality. Signer Name: Dwaine Marroquin MD Signed: 01/10/2020 6:20 AM Workstation Name: [id number]
[2020-01-10 06:36] LABS: BUN/Creatinine Ratio 18; Blood Urea Nitrogen 18 mg/dL (7-17); Calcium 9.6 mg/dL (8.4-10.2); Hemolysis Index 15
[2020-01-10 08:38] VITALS: BP 139/78
--- NOTE | 2020-01-10 08:56 | Emergency Department Report ---
ED Chest Pain HPI - General Chief Complaint: Chest Pain Stated Complaint: AFSHAN PUI?: No Time Seen by Provider: 01/10/20 08:39 Source: patient, RN notes reviewed, old records reviewed Mode of arrival: Wheelchair Limitations: No Limitations - History of Present Illness Initial Comments: The patient was evaluated in the emergency department for symptoms described in the history of present illness. He/she was evaluated in the context of the global COVID-19 pandemic, which necessitated consideration that the patient might be at risk for infection with the virus that causes COVID-19. Institutional protocols and algorithms that pertain to the evaluation of patients at risk for COVID-19 are in a state of rapid change based on i nformation released by regulatory bodies including the CDC and federal and state organizations. These policies and algorithms were followed during the patient's care in the emergency department. Please note that these policies, procedures and recommendations changed on a rapid basis. Patient is a pleasant 59-year-old female. She is not known to myself previously. She does not have a local primary care doctor. She has a history of diabetes, but ran out of her metformin medication. She reports a strong family history of ischemic heart disease, reports her son had a stent placed at the age of 36, and "my mother of congestive heart failure." She presents to the ER today with a complaint of nontraumatic left- sided chest pain, which radiates down the left upper extremity, which is intermittent. She is pain-free at this time. However, she has been having intermittent pain since 330 this morning. She denies headache, neck pain, vomiting, diaphoresis exertional shortness of breath, DVT and pulmonary embolism risk factors. She does take a daily aspirin. No health technician hearing or cardiac risk ratification recently that she is aware of. She states that she is chest pain- free at this time MD Complaint: chest pain -: Sudden Pain Location: left chest Pain Radiation: LUE Severity: mild Severity scale (0 -10): 5 Quality: aching Consistency: intermittent Improves With: nothing Worsens With: nothing Treatments Prior to Arrival: aspirin Aspirin use within the Past 7 Days: (1) Yes - Related Data Home Medications Medication Instructions Recorded Confirmed Last Taken Metformin HCl [Glucophage] 500 mg PO QDAY 12/31/16 12/31/16 Unknown Previous Rx's Medication Instructions Recorded Last Taken Type Estrogens, Conjugated [Premarin 1 applicator VG QHS #1 tube 12/31/16 Unknown Rx 0.625 mg/gram VAG CREAM] cephALEXin [Keflex] 500 mg PO Q12HR #14 cap 12/31/16 Unknown Rx Sulfamethoxazole/Trimethoprim 1 each PO BID 10 Days #20 tablet 10/04/18 Unknown Rx [Bactrim DS TAB] Ondansetron [Zofran Odt] 4 mg PO Q8HR PRN #15 tab.rapdis 08/26/19 Unknown Rx metFORMIN [Glucophage] 500 mg PO QDAY #30 tab 08/26/19 Unknown Rx Amlodipine Besylate [Norvasc] 5 mg PO QDAY #30 tablet 01/10/20 Unknown Rx Aspirin 325 mg PO ONCE #30 tablet 01/10/20 Unknown Rx metFORMIN [Glucophage] 500 mg PO QDAY #30 tab 01/10/20 Unknown Rx Allergies Allergy/AdvReac Type Severity Reaction Status Date / Time No Known Allergies Allergy Verified 10/06/18 11:55 Heart Score - HEART Score History: Moderately suspicious EKG: Non-specific Age: 45-65 Risk factors: > 3 risk factors or hx of atherosclerotic disease Troponin: < normal limit HEART Score: 5 - Critical Actions Critical Actions: 4-6 pts:12-16.6% risk of adverse cardiac event. Should be admitted ED Review of Systems ROS: Stated complaint: AFSHAN Other details as noted in HPI Comment: All other systems reviewed and negative Cardiovascular: chest pain Neurological: paresthesias ED Past Medical Hx - Past Medical History Hx Hypertension: Yes (non compliant with meds) Hx Diabetes: Yes - Surgical History Additional Surgical History: HYSTERECTOMY - Social History Smoking Status: Current Every Day Smoker Substance Use Type: None - Medications Home Medications: Home Medications Medication Instructions Recorded Confirmed Last Taken Type Estrogens, Conjugated [Premarin 1 applicator VG QHS #1 tube 12/31/16 Unknown Rx 0.625 mg/gram VAG CREAM] Metformin HCl [Glucophage] 500 mg PO QDAY 12/31/16 12/31/16 Unknown History cephALEXin [Keflex] 500 mg PO Q12HR #14 cap 12/31/16 Unknown Rx Sulfamethoxazole/Trimethoprim 1 each PO BID 10 Days #20 tablet 10/04/18 Unknown Rx [Bactrim DS TAB] Ondansetron [Zofran Odt] 4 mg PO Q8HR PRN #15 tab.rapdis 08/26/19 Unknown Rx metFORMIN [Glucophage] 500 mg PO QDAY #30 tab 08/26/19 Unknown Rx Amlodipine Besylate [Norvasc] 5 mg PO QDAY #30 tablet 01/10/20 Unknown Rx Aspirin 325 mg PO ONCE #30 tablet 01/10/20 Unknown Rx metFORMIN [Glucophage] 500 mg PO QDAY #30 tab 01/10/20 Unknown Rx ED Physical Exam - General Limitations: No Limitations General appearance: alert, in no apparent distress - Head Head exam: Present: atraumatic, normocephalic - Eye Eye exam: Present: normal appearance, EOMI. Absent: nystagmus - ENT ENT exam: Present: normal exam, normal orophraynx, mucous membranes moist, normal external ear exam - Neck Neck exam: Present: normal inspection, full ROM. Absent: tenderness, meningismus - Respiratory Respiratory exam: Present: normal lung sounds bilaterally. Absent: respiratory distress, wheezes, rales, rhonchi, stridor, decreased breath sounds - Cardiovascular Cardiovascular Exam: Present: regular rate, normal rhythm, normal heart sounds. Absent: bradycardia, tachycardia, irregular rhythm, systolic murmur, diastolic murmur, rubs, gallop - GI/Abdominal GI/Abdominal exam: Present: soft. Absent: distended, tenderness, guarding, rebound, rigid, pulsatile mass - Extremities Exam Extremities exam: Present: normal inspection, full ROM, normal capillary refill, other (2+ pulses noted in the bilateral upper and lower extremities. There is no palpable cord. negative Homans sign. Muscular compartments are soft. The pelvis is stable.). Absent: tenderness, pedal edema, joint swelling, calf tenderness - Back Exam Back exam: Present: normal inspection, full ROM. Absent: CVA tenderness (R), CVA tenderness (L), muscle spasm, paraspinal tenderness, vertebral tenderness - Neurological Exam Neurological exam: Present: alert, oriented X3, normal gait, other (No facial droop. Tongue midline. Extraocular movements intact bilaterally. Facial sens ation intact to light touch in V1, V2, V3 distribution bilaterally. 5 and a 5 strength in 4 extremities. Sensation intact to light touch in 4 extremities.). Absent: motor sensory deficit - Psychiatric Psychiatric exam: Present: normal affect, normal mood - Skin Skin exam: Present: warm, dry, intact, normal color. Absent: rash ED Course Vital Signs 01/10/20 01/10/20 05:39 08:36 Temperature 97.9 F Pulse Rate 99 H 93 H Respiratory 18 14 Rate Blood Pressure 186/87 Blood Pressure 139/78 [Left] O2 Sat by Pulse 99 100 Oximetry TREVOR score - Trevor Score Age > 65: (0) No Aspirin use within the Past 7 Days: (1) Yes 3 or more CAD Risk Factors: (1) Yes 2 or more Angina events in past 24 hrs: (1) Yes Known CAD with more than 50% Stenosis: (0) No Elevated Cardiac Markers: (0) No ST Deviation Greater than 0.5mm: (0) No TREVOR Score: 3 ED Medical Decision Making - Lab Data Result diagrams: 01/10/20 05:47 01/10/20 05:47 Vital Signs 01/10/20 01/10/20 05:39 08:36 Temperature 97.9 F Pulse Rate 99 H 93 H Respiratory 18 14 Rate Blood Pressure 186/87 Blood Pressure 139/78 [Left] O2 Sat by Pulse 99 100 Oximetry Lab Results 01/10/20 01/10/20 01/10/20 Range/Units 05:47 05:47 09:40 WBC 9.5 (4.5-11.0) K/mm3 RBC 4.28 (3.65-5.03) M/mm3 Hgb 14.3 (10.1-14.3) gm/dl Hct 41.5 (30.3-42.9) % MCV 97 (79-97) fl MCH 33 H (28-32) pg MCHC 35 H (30-34) % RDW 13.1 L (13.2-15.2) % Plt Count 332 (140-440) K/mm3 Lymph % (Auto) 37.3 H (13.4-35.0) % [place] % (Auto) 4.6 (0.0-7.3) % Eos % (Auto) 1.1 (0.0-4.3) % Baso % (Auto) 1.2 (0.0-1.8) % Lymph # (Auto) 3.5 (1.2-5.4) K/mm3 [place] # (Auto) 0.4 (0.0-0.8) K/mm3 Eos # (Auto) 0.1 (0.0-0.4) K/mm3 Baso # (Auto) 0.1 (0.0-0.1) K/mm3 Seg Neutrophils % 55.8 (40.0-70.0) % Seg Neutrophils # 5.3 (1.8-7.7) K/mm3 Sodium 134 L (137-145) mmol/L Potassium 4.0 (3.6-5.0) mmol/L Chloride 98.2 (98-107) mmol/L Carbon Dioxide 19 L (22-30) mmol/L Anion Gap 21 mmol/L BUN 18 H (7-17) mg/dL Creatinine 1.0 (0.6-1.2) mg/dL Estimated GFR > 60 ml/min BUN/Creatinine Ratio 18 % Glucose 464 H (65-100) mg/dL POC Glucose 372 H (70-105) Calcium 9.6 (8.4-10.2) mg/dL Troponin T < 0.010 (0.00-0.029) ng/mL - EKG Data -: EKG Interpreted by Ms EKG shows normal: sinus rhythm Rate: normal - EKG Data When compared to previous EKG there are: previous EKG unavailable 01/10/20 09:48 There is no prior EKG available for comparison. Sinus rhythm, 85 bpm, left ventricular hypertrophy, normal axis, normal intervals, . Abnormal EKG. Not a STEMI. - Radiology Data Radiology results: pending, report reviewed, image reviewed X-ray of the chest is negative for acute disease - Medical Decision Making Differential diagnosis, including but not limited to: Acute coronary syndrome, GERD, gastritis, hiatal hernia, pneumonia, medication refill, noncompliance Assessment and plan: 59-year-old female, who is not currently tachycardic, tachypneic or hypoxic, who denies DVT and pulmonary embolism risk factors, who is low risk by Wells criteria, with unremarkable x-ray of the chest, unremarkable mediastinum, equal pulses in the bilateral upper and lower extremities, with symptoms concerning for coronary artery disease. Patient is basically pain-free at this time. She presents as alert, oriented, clinically sober at this time, and free from distracting injury. The patient exhibits decision-making capacity. She is moderate risk for major adverse cardiac event as per heart score. I strongly encouraged the patient to accept admission to this hospital for cardiac risk ratification, and risk factor modification. Patient is declining/refusing at this time. Risks of leaving, including , disability, paralysis, permanent loss of quality of life are discussed with the patient. She verbalizes understanding. She is able to articulate these risks in her own words. She states that she will follow-up with an outpatient primary care doctor. This conversation is witnessed by nurse Nisa Hong. Patient understands that she may return to the emergency room right away if and when she changes her mind. I will refill her metformin, as she has run out of it, and also discharged with Norvasc, and aspirin. Critical care attestation.: If time is entered above; I have spent that time in minutes in the direct care of this critically ill patient, excluding procedure time. ED Disposition Clinical Impression: Acute chest pain, Hyperglycemia, Elevated blood pressure reading, Medication refill Disposition: - LEFT AGAINST MED ADVICE Is pt being admited?: No Does the pt Need Aspirin: No Condition: Undetermined Instructions: Chest Pain (ED) Additional Instructions: As we discussed, you have left the hospital/emergency room AGAINST MEDICAL ADVICE. By leaving, you risked , disability, paralysis, permanent loss of quality of life. The ER is open 24 hours a day, 7 days a week. It never closes. Please return to the emergency room right away if and when you change your mind. If you decide not to return to the emergency room, please follow-up with the listed physician referrals as soon as possible. Prescriptions: Aspirin 325 mg PO ONCE #30 tablet metFORMIN [Glucophage] 500 mg PO QDAY #30 tab Amlodipine Besylate [Norvasc] 5 mg PO QDAY #30 tablet Referrals: SANTHOSH ROSALES MD [Staff Physician] - 3-5 Days ALIZA BARRETT MD [Staff Physician] - 3-5 Days Forms: Work/School Release Form(ED)
[2020-01-10] MEDS ORDERED: INSULIN REGULAR, HUMAN 100 UNIT/ML 3ML VIAL SUB-Q ONE (09:07)
[2020-01-10] MEDS ORDERED: FAMOTIDINE 20 MG TAB PO ONE (09:07)
[2020-01-10] MEDS ORDERED: INSULIN REGULAR, HUMAN 100 UNITS/1 ML ONE (09:33)
== END 2020-01-10 10:00 | disposition left against medical advice (07) ==
LOC: ED 05:37
DX: E11.65 Type 2 diabetes mellitus with hyperglycemia (principal); I10 Essential (primary) hypertension; Z76.0 Encounter for issue of repeat prescription; Z98.890 Other specified postprocedural states; F17.200 Nicotine dependence, unspecified, uncomplicated; Z90.49 Acquired absence of other specified parts of digestive tract; Z79.82 Long term (current) use of aspirin; Z79.899 Other long term (current) drug therapy
CPT/HCPCS: 36415; 71046; 80048; 82962; 84484; 85025; 93005; 96372; J1815

== ENCOUNTER 2020-01-21 10:57 | Emergency (ER) | payer SELFPAY ==
[2020-01-21] MEDS ORDERED: ASPIRIN 325 MG TAB PO ONE (11:01)
--- NOTE | 2020-01-21 11:42 | XRay Report ---
CHEST 1 VIEW INDICATION: Chest Pain. COMPARISON: 01/10/2020 FINDINGS: Support devices: None. Heart: Within normal limits. Lungs/Pleura: No acute air space or interstitial disease. Additional findings: None. IMPRESSION: No acute findings. Signer Name: Yahir Liz Jr, MD Signed: 01/21/2020 11:37 AM Workstation Name: [id number]
[2020-01-21 12:08] LABS: Basophils # (Auto) 0.1 K/mm3 (0.0-0.1); Basophils % (Auto) 1.2 % (0.0-1.8); Eosinophils # (Auto) 0.1 K/mm3 (0.0-0.4); Eosinophils % (Auto) 1.3 % (0.0-4.3); Hematocrit 44.2 % (30.3-42.9); Hemoglobin 15.3 gm/dl (10.1-14.3); Lymphocytes # (Auto) 2.8 K/mm3 (1.2-5.4); Lymphocytes % (Auto) 41.7 % (13.4-35.0); Mean Corpuscular HGB Conc 35 % (30-34); Mean Corpuscular Volume 97 fl (79-97); Monocytes # (Auto) 0.4 K/mm3 (0.0-0.8); Monocytes % (Auto) 5.3 % (0.0-7.3); Platelet Count 350 K/mm3 (140-440); Red Blood Count 4.57 M/mm3 (3.65-5.03); Red Cell Distribution Width 12.8 % (13.2-15.2)
[2020-01-21 12:29] LABS: BUN/Creatinine Ratio 13; Blood Urea Nitrogen 10 mg/dL (7-17); Calcium 9.3 mg/dL (8.4-10.2); Hemolysis Index 16
--- NOTE | 2020-01-21 13:24 | Emergency Department Report ---
ED Chest Pain HPI - General Chief Complaint: Chest Pain Stated Complaint: CHEST PAIN/SOB Time Seen by Provider: 01/21/20 12:24 Source: patient Mode of arrival: Ambulatory Limitations: No Limitations - History of Present Illness Initial Comments: 59-year-old -[place] female patient with history of diabetes and hypertension presents with complaints of left-sided chest pain radiating down her left arm with numbness x 2 days. Patient was seen here on 01/10/2020 for the same complaint. At that time due to her heart score of 5, it was recommended that she be admitted for further evaluation, however patient declined. She states her symptoms resolved after that day and returned 2 days ago. She states she now has shortness of breath that is worse with exertion, but denies any leg swelling, recent long travel/surgeries, hemoptysis/cough, hormone use, or history of DVT/PE/cancer. Patient is a current smoker. She rates her current pain as a 8/10 in severity and describes it as stabbing and dull -: Sudden Onset: during rest, during exertion - Related Data Home Medications Medication Instructions Recorded Confirmed Last Taken Metformin HCl [Glucophage] 500 mg PO QDAY 12/31/16 12/31/16 Unknown Previous Rx's Medication Instructions Recorded Last Taken Type Estrogens, Conjugated [Premarin 1 applicator VG QHS #1 tube 12/31/16 Unknown Rx 0.625 mg/gram VAG CREAM] cephALEXin [Keflex] 500 mg PO Q12HR #14 cap 12/31/16 Unknown Rx Sulfamethoxazole/Trimethoprim 1 each PO BID 10 Days #20 tablet 10/04/18 Unknown Rx [Bactrim DS TAB] Ondansetron [Zofran Odt] 4 mg PO Q8HR PRN #15 tab.rapdis 08/26/19 Unknown Rx metFORMIN [Glucophage] 500 mg PO QDAY #30 tab 08/26/19 Unknown Rx Amlodipine Besylate [Norvasc] 5 mg PO QDAY #30 tablet 01/10/20 Unknown Rx Aspirin 325 mg PO ONCE #30 tablet 01/10/20 Unknown Rx metFORMIN [Glucophage] 500 mg PO QDAY #30 tab 01/10/20 Unknown Rx Allergies Allergy/AdvReac Type Severity Reaction Status Date / Time No Known Allergies Allergy Verified 10/06/18 11:55 Heart Score - HEART Score History: Moderately suspicious EKG: Non-specific Age: 45-65 Risk factors: > 3 risk factors or hx of atherosclerotic disease Troponin: < normal limit HEART Score: 5 ED Review of Systems ROS: Stated complaint: CHEST PAIN/SOB Other details as noted in HPI Constitutional: denies: chills, diaphoresis, fever, malaise, weakness Respiratory: shortness of breath. denies: cough Cardiovascular: chest pain. denies: palpitations Gastrointestinal: denies: abdominal pain, nausea, vomiting Musculoskeletal: denies: back pain Neurological: numbness (Left arm). denies: headache, weakness, abnormal gait ED Past Medical Hx - Past Medical History Previous Medical History?: Yes Hx Hypertension: Yes (non compliant with meds) Hx Diabetes: Yes - Surgical History Past Surgical History?: Yes Additional Surgical History: HYSTERECTOMY - Social History Smoking Status: Current Every Day Smoker Substance Use Type: None - Medications Home Medications: Home Medications Medication Instructions Recorded Confirmed Last Taken Type Estrogens, Conjugated [Premarin 1 applicator VG QHS #1 tube 12/31/16 Unknown Rx 0.625 mg/gram VAG CREAM] Metformin HCl [Glucophage] 500 mg PO QDAY 12/31/16 12/31/16 Unknown History cephALEXin [Keflex] 500 mg PO Q12HR #14 cap 12/31/16 Unknown Rx Sulfamethoxazole/Trimethoprim 1 each PO BID 10 Days #20 tablet 10/04/18 Unknown Rx [Bactrim DS TAB] Ondansetron [Zofran Odt] 4 mg PO Q8HR PRN #15 tab.rapdis 08/26/19 Unknown Rx metFORMIN [Glucophage] 500 mg PO QDAY #30 tab 08/26/19 Unknown Rx Amlodipine Besylate [Norvasc] 5 mg PO QDAY #30 tablet 01/10/20 Unknown Rx Aspirin 325 mg PO ONCE #30 tablet 01/10/20 Unknown Rx metFORMIN [Glucophage] 500 mg PO QDAY #30 tab 01/10/20 Unknown Rx ED Physical Exam - General Limitations: No Limitations General appearance: alert, in no apparent distress - Head Head exam: Present: atraumatic, normocephalic - Eye Eye exam: Present: normal appearance. Absent: scleral icterus - ENT ENT exam: Present: mucous membranes moist - Neck Neck exam: Present: normal inspection - Respiratory Respiratory exam: Present: normal lung sounds bilaterally. Absent: respiratory distress, wheezes, rales, rhonchi, stridor, chest wall tenderness - Cardiovascular Cardiovascular Exam: Present: regular rate, normal rhythm. Absent: systolic murmur, diastolic murmur, rubs, gallop - GI/Abdominal GI/Abdominal exam: Present: soft. Absent: distended, tenderness, guarding, rebound, rigid - Extremities Exam Extremities exam: Present: full ROM. Absent: calf tenderness (No swelling or tenderness noted to legs bilateral) - Back Exam Back exam: Present: normal inspection - Neurological Exam Neurological exam: Present: alert, oriented X3 - Psychiatric Psychiatric exam: Present: normal affect, normal mood - Skin Skin exam: Present: warm, dry, intact, normal color. Absent: rash ED Course Vital Signs 01/21/20 11:02 Temperature 98.5 F Pulse Rate 96 H Respiratory 18 Rate Blood Pressure 155/89 O2 Sat by Pulse 98 Oximetry HEATH score - Heath Score Age > 65: (0) No Aspirin use within the Past 7 Days: (1) Yes 3 or more CAD Risk Factors: (1) Yes 2 or more Angina events in past 24 hrs: (1) Yes Known CAD with more than 50% Stenosis: (0) No Elevated Cardiac Markers: (0) No ST Deviation Greater than 0.5mm: (0) No HEATH Score: 3 ED Medical Decision Making - Lab Data Result diagrams: 01/21/20 11:51 01/21/20 11:51 Lab Results 01/21/20 01/21/20 01/21/20 Range/Units 11:51 11:51 11:51 WBC 6.8 (4.5-11.0) K/mm3 RBC 4.57 (3.65-5.03) M/mm3 Hgb 15.3 H (10.1-14.3) gm/dl Hct 44.2 H (30.3-42.9) % MCV 97 (79-97) fl MCH 33 H (28-32) pg MCHC 35 H (30-34) % RDW 12.8 L (13.2-15.2) % Plt Count 350 (140-440) K/mm3 Lymph % (Auto) 41.7 H (13.4-35.0) % [place] % (Auto) 5.3 (0.0-7.3) % Eos % (Auto) 1.3 (0.0-4.3) % Baso % (Auto) 1.2 (0.0-1.8) % Lymph # (Auto) 2.8 (1.2-5.4) K/mm3 [place] # (Auto) 0.4 (0.0-0.8) K/mm3 Eos # (Auto) 0.1 (0.0-0.4) K/mm3 Baso # (Auto) 0.1 (0.0-0.1) K/mm3 Seg Neutrophils % 50.5 (40.0-70.0) % Seg Neutrophils # 3.4 (1.8-7.7) K/mm3 Sodium 136 L (137-145) mmol/L Potassium 4.2 (3.6-5.0) mmol/L Chloride 98.3 (98-107) mmol/L Carbon Dioxide 24 (22-30) mmol/L Anion Gap 18 mmol/L BUN 10 (7-17) mg/dL Creatinine 0.8 (0.6-1.2) mg/dL Estimated GFR > 60 ml/min BUN/Creatinine Ratio 13 % Glucose 333 H (65-100) mg/dL Calcium 9.3 (8.4-10.2) mg/dL Total Bilirubin 0.20 (0.1-1.2) mg/dL Direct Bilirubin < 0.2 (0-0.2) mg/dL Indirect Bilirubin 0.0 mg/dL AST 13 (5-40) units/L ALT 11 (7-56) units/L Alkaline Phosphatase 97 (35-129) units/L Troponin T < 0.010 (0.00-0.029) ng/mL Total Protein 7.5 (6.3-8.2) g/dL Albumin 4.1 (3.9-5) g/dL Albumin/Globulin Ratio 1.2 % - Radiology Data Radiology results: report reviewed CHEST 1 VIEW INDICATION: Chest Pain. COMPARISON: 01/10/2020 FINDINGS: Support devices: None. Heart: Within normal limits. Lungs/Pleura: No acute air space or interstitial disease. Additional findings: None. IMPRESSION: No acute findings. - Medical Decision Making 59-year-old -[place] female patient with history of diabetes and hypertension presents with complaints of left-sided chest pain radiating down her left arm with numbness x 2 days. Patient was seen here on 01/10/2020 for the same complaint. At that time due to her heart score of 5, it was recommended that she be admitted for further evaluation, however patient declined. She states her symptoms resolved after that day and returned 2 days ago. She states she now has shortness of breath that is worse with exertion, but denies any leg swelling, recent long travel/surgeries, hemoptysis/cough, hormone use, or history of DVT/PE/cancer. Patient is a current smoker. She rates her current pain as a 8/10 in severity and describes it as stabbing and dull EKG shows normal sinus rhythm with left atrial enlargement. Chest x-ray is normal. Initial troponin is normal. No significant abnormalities noted on CBC or CMP. Patient denies prior cardiac history or recent cardiac work-up/evalu ation. Discussed patient with Dr. Medrano, [facility]-agrees with admission. Morphine given for chest pain. Vitals are stable and she is well- appearing at this time. Critical care attestation.: If time is entered above; I have spent that time in minutes in the direct care of this critically ill patient, excluding procedure time. ED Disposition Clinical Impression: Left-sided chest pain Disposition: OP ADMIT IP TO THIS HOSP Is pt being admited?: Yes Condition: Stable Instructions: Chest Pain (ED)
[2020-01-21 13:34] LABS: Alanine Aminotransferase 11 units/L (7-56); Albumin 4.1 g/dL (3.9-5)
[2020-01-21] MEDS ORDERED: MORPHINE 4 MG/1 ML INJ IV ONE (13:34)
[2020-01-21] MEDS ORDERED: ONDANSETRON 4 MG ODT TAB PO ONE (13:34)
[2020-01-21 13:36] LABS: Bilirubin,Direct < 0.2 mg/dL (0-0.2)
[2020-01-21] MEDS ORDERED: amLODIPine 5 MG TAB PO ONE (13:53)
[2020-01-21 14:47] VITALS: BP 143/84
== END 2020-01-21 17:16 | disposition admitted as inpatient to this hospital (09) ==
LOC: ED 10:57
DX: R07.89 Other chest pain (principal); R20.2 Paresthesia of skin
CPT/HCPCS: 36415; 71045; 80048; 80076; 83880; 84484; 85025; 85379; 93005; 96374; 99284; J2270; Q0162

== ENCOUNTER 2020-11-12 07:23 | Emergency (ER) | payer SELFPAY ==
--- NOTE | 2020-11-12 10:14 | Emergency Department Report ---
- General Chief complaint: Weakness Stated complaint: WEAK AND CANNOT GET MY BREATH PUI?: No Time Seen by Provider: 11/12/20 10:09 Source: patient Mode of arrival: Ambulatory Limitations: No Limitations - History of Present Illness Initial comments: Patient is a 60-year-old female that comes to the emergency room complaining of generalized weakness. She is a diabetic. She is not been checking her blood sugars. She denies any fever or chills. She denies chest pain or shortness of breath. She denies nausea vomiting or diarrhea. She denies any abdominal pain. She denies any dysuria or vaginal discharge. Patient is very vague with her complaints. Patient is ambulatory and [id number] on arrival to [facility] -: Gradual, week(s) Improves with: none Worsens with: none Associated Symptoms: denies other symptoms - Related Data Allergies Allergy/AdvReac Type Severity Reaction Status Date / Time No Known Allergies Allergy Verified 10/06/18 11:55 ED Review of Systems ROS: Stated complaint: WEAK AND CANNOT GET MY BREATH Other details as noted in HPI Comment: All other systems reviewed and negative ED Past Medical Hx - Past Medical History Previous Medical History?: Yes Hx Hypertension: Yes (non compliant with meds) Hx Diabetes: Yes Hx GERD: Yes - Surgical History Past Surgical History?: Yes Additional Surgical History: HYSTERECTOMY - Family History Family history: no significant - Social History Smoking Status: Never Smoker Substance Use Type: None ED Physical Exam - General Limitations: No Limitations General appearance: alert, in no apparent distress - Head Head exam: Present: atraumatic, normocephalic - Eye Eye exam: Present: normal appearance - ENT ENT exam: Present: mucous membranes moist - Neck Neck exam: Present: normal inspection - Respiratory Respiratory exam: Present: normal lung sounds bilaterally. Absent: respiratory distress - Cardiovascular Cardiovascular Exam: Present: regular rate, normal rhythm. Absent: systolic murmur, diastolic murmur, rubs, gallop - GI/Abdominal GI/Abdominal exam: Present: soft, normal bowel sounds - Extremities Exam Extremities exam: Present: normal inspection - Back Exam Back exam: Present: normal inspection - Neurological Exam Neurological exam: Present: alert, oriented X3 - Psychiatric Psychiatric exam: Present: normal affect, normal mood - Skin Skin exam: Present: warm, dry, intact, normal color. Absent: rash - Assessment Assessment Interval: Baseline - Level of Consciousness 1a. Level of Consciousness: alert/keenly responsive - LOC Questions 1b. LOC Questions: answers both correctly - LOC Command 1c. LOC Commands: performs tasks correctly - Best Gaze 2. Best Gaze: normal - Visual 3. Visual: no visual loss - Facial Palsy 4. Facial Palsy: normal symmetrical movement - Motor Arm 5a. Motor Arm Left: no drift 5b. Motor Arm Right: no drift - Motor Leg 6a. Motor Leg Left: no drift 6b. Motor Leg Right: no drift - Limb Ataxia 7. Limb Ataxia: absent - Sensory 8. Sensory: normal - Best Language 9. Best Language: no aphasia - Dysarthria 10. Dysarthria: normal - Extinction and Inattention 11. Extinction/Inattention: no abnormality - Scoring Total Score: 0 Stroke Severity: No Stroke Symptoms ED Course Vital Signs 11/12/20 08:16 Temperature 98 F Pulse Rate 100 H Respiratory 16 Rate Blood Pressure 143/75 [Left] O2 Sat by Pulse 97 Oximetry - Reevaluation(s) Reevaluation #1: 11/12/20 13:35 CURRENT HOME MED INSULIN 70-30 WHICH SHE STATES SHE IS TAKING ED Medical Decision Making - Lab Data Result diagrams: 11/12/20 09:42 11/12/20 09:42 - EKG Data EKG shows normal: sinus rhythm Rate: normal - EKG Data When compared to previous EKG there are: no significant change Interpretation: no acute changes - Radiology Data Radiology results: report reviewed, image reviewed NAP - Medical Decision Making Vital Signs 11/12/20 08:16 Temperature 98 F Pulse Rate 100 H Respiratory 16 Rate Blood Pressure 143/75 [Left] O2 Sat by Pulse 97 Oximetry Labs 11/12/20 11/12/20 11/12/20 09:42 09:42 09:42 VBG pH 7.360 Sodium 136 L Potassium 3.8 Chloride 97.5 L Carbon Dioxide 23 Anion Gap 19 BUN 13 Creatinine 0.7 Estimated GFR > 60 BUN/Creatinine Ratio 19 Glucose 149 H Calcium 8.9 Total Bilirubin 0.30 AST 46 H ALT 17 Alkaline Phosphatase 74 Troponin T < 0.010 Total Protein 7.3 Albumin 3.4 L Albumin/Globulin Ratio 0.9 Urine Color Urine Turbidity Urine pH Ur Specific [place] Urine Protein Urine Glucose (UA) Urine Ketones Urine Blood Urine Nitrite Urine Bilirubin Urine Urobilinogen Ur Leukocyte Esterase Urine WBC (Auto) Urine RBC (Auto) U Epithel Cells (Auto) Urine Bacteria (Auto) Hyaline Casts Urine Mucus 11/12/20 12:48 VBG pH Sodium Potassium Chloride Carbon Dioxide Anion Gap BUN Creatinine Estimated GFR BUN/Creatinine Ratio Glucose Calcium Total Bilirubin AST ALT Alkaline Phosphatase Troponin T Total Protein Albumin Albumin/Globulin Ratio Urine Color Griselda Urine Turbidity Slightly-cloudy Urine pH 5.0 Ur Specific [place] 1.027 Urine Protein >500 Urine Glucose (UA) Neg Urine Ketones 20 Urine Blood Lg Urine Nitrite Neg Urine Bilirubin Neg Urine Urobilinogen 4.0 Ur Leukocyte Esterase Neg Urine WBC (Auto) 3.0 Urine RBC (Auto) 14.0 U Epithel Cells (Auto) 12.0 Urine Bacteria (Auto) 1+ Hyaline Casts 1 Urine Mucus Few Vital Signs 11/12/20 08:16 Temperature 98 F Pulse Rate 100 H Respiratory 16 Rate Blood Pressure 143/75 [Left] O2 Sat by Pulse 97 Oximetry Labs noted. UA noted. Twelve-lead EKG noted. Troponin negative. Patient states she is taking her 70/30 insulin however, on reexam she states [place] t she needs a refill. She states that she is not can get a check until the end of the week and is asking for samples. I discussed with patient the importance of ongoing follow-up with a primary care . She then asked for PCP I think she is probably been hyperglycemic and dehydrated. She received a liter of normal saline in the ER. She reports feeling better. On discharge exam patient is ambulatory, nonill nontoxic appearing. She is taking p.o. Patient being discharged home with discharge plan of care including PCP follow- up. I have asked her to follow-up with him as soon as possible to get her needed medications. I suspect that she is on others other than the 7030 based on the EMR. Patient verbalizes understanding - Differential Diagnosis RO HYPERGLYCEMIA/PNA/HF/ACS Critical care attestation.: If time is entered above; I have spent that time in minutes in the direct care of this critically ill patient, excluding procedure time. ED Disposition Clinical Impression: Diabetes, Non-adherence to medical treatment, Hyperglycemia, Proteinuria Disposition: DC-01 TO HOME OR SELFCARE Is pt being admited?: No Does the pt Need Aspirin: No Condition: Stable Instructions: Type 2 Diabetes Mellitus, Self Care, Adult, Diabetes Mellitus Type 2 in Adults (ED) Additional Instructions: STAY WELL HYDRATED WITH WATER CONTINUE YOUR HOME MEDS DIABETIC DIET MONITOR YOUR BLOOD SUGAR REFERRAL BELOW TO PCP FOR FOLLOW UP YOU SHOULD SEE HIM NEXT WEEK Referrals: BLANCO SCHWARTZ MD [Staff Physician] - 3-5 Days Time of Disposition: 13:17
--- NOTE | 2020-11-12 10:25 | XRay Report ---
CHEST 2 VIEWS INDICATION / CLINICAL INFORMATION: Shortness of breath. COMPARISON: 05/23/2019 FINDINGS: SUPPORT DEVICES: None. HEART / MEDIASTINUM: No significant abnormality. LUNGS / PLEURA: No focal consolidation or pleural effusion. Stable mild increased interstitial promin ence throughout both lungs which may indicate mild chronic interstitial lung disease. No pneumothorax . ADDITIONAL FINDINGS: No significant additional findings. IMPRESSION: 1. No acute findings. Signer Name: Benoit Huff MD Signed: 11/12/2020 10:21 AM Workstation Name: [email or web address]
[2020-11-12 10:45] LABS: Alanine Aminotransferase 17 units/L (7-56); Albumin 3.4 g/dL (3.9-5); BUN/Creatinine Ratio 19; Blood Urea Nitrogen 13 mg/dL (7-17); Calcium 8.9 mg/dL (8.4-10.2); Hemolysis Index 2
[2020-11-12 13:08] LABS: Bacteria,Urine 1+ /HPF (Negative); Bilirubin,Urine NEG (Negative); Blood,Urine LG (Negative); Color,Urine Amber (Yellow); Hyaline Casts,Urine 1 /LPF; Mucus,Urine FEW /HPF
[2020-11-12 13:10] LABS: Protein,Urine >500 mg/dL (Negative)
[2020-11-12] MEDS ORDERED: SODIUM CHLORIDE 0.9% 1000 ML 1,000 ML IV ONE (13:11)
[2020-11-12 13:34] LABS: Hematocrit 45.2 % (30.3-42.9); Hemoglobin 15.5 gm/dl (10.1-14.3); Mean Corpuscular HGB Conc 34 % (30-34); Mean Corpuscular Volume 97 fl (79-97); Platelet Count 248 K/mm3 (140-440); Red Blood Count 4.68 M/mm3 (3.65-5.03); Red Cell Distribution Width 13.7 % (13.2-15.2)
[2020-11-12 16:21] VITALS: BP 138/74
--- NOTE | 2020-11-14 09:13 | Electrocardiograph Report ---
[facility] Test Date: 2020-11-12 Test Time: 12:32:13 Pat Name: LUCIANO LOMELI Department: Room: Gender: F [employer]: MARIO : 1960 Requested By: FRANCESCA MARTINEZ Order Number: [id number] Reading MD: William Resendiz Measurements Intervals [place] Rate: 95 P: 65 MN: 210 QRS: 76 QRSD: 83 T: 46 QT: 358 QTc: 449 Interpretive Statements Sinus rhythm Prolonged MN interval Probable left atrial enlargement No previous ECG available for comparison Electronically Signed On 11-14-2020 9:13:12 EDT by William Resendiz
== END 2020-11-12 16:21 | disposition home or self-care (01) ==
LOC: ED 07:23
DX: E11.65 Type 2 diabetes mellitus with hyperglycemia (principal); R80.9 Proteinuria, unspecified; I10 Essential (primary) hypertension; K21.9 Gastro-esophageal reflux disease without esophagitis; Z91.19 Patient's noncompliance with other medical treatment and regimen; Z90.710 Acquired absence of both cervix and uterus
CPT/HCPCS: 36415; 71046; 80053; 81001; 82805; 84484; 85027; 93005; 99283; J7030